=== PATIENT | female | born 1965 | race Two or more races ===

== ENCOUNTER 2023-01-24 00:56 | Inpatient (IN) | payer MEDICAID, OTHER ==
[~2023-01-24] VITALS: Ht 167.6 cm; Wt 93.8 kg
[2023-01-24] VITALS (9 sets, daily range): BP systolic 126–138; BP diastolic 76–88; PULSE 84–97; RESP 17–25; TEMP 97.5–97.9; O2SAT 90–97
[2023-01-24] MEDS ORDERED: IOHEXOL 350 MG/ML 100ML IJ ONE (02:24)
[2023-01-24 02:47] LABS: Basophils # (auto) 0.1 10 ^3/uL (0-0.2); Basophils % (auto) 0.7 % (0.0-2.0); Eosinophils # (auto) 0.1 10 ^3/uL (0-0.8); Hematocrit 42.7 % (36.0-46.0); Lymphocytes % (auto) 19.5 % (10.0-50.0); Mean Corpuscular Hemoglobin 29.9 pg (28.0-32.0); Mean Corpuscular Hgb Conc. 32.7 g/dL (32.0-36.0); Mean Corpuscular Volume 91.5 fL (80.0-100.0); Monocytes # (auto) 0.8 10 ^3/uL (0-1.3); Monocytes % (auto) 7.7 % (0.0-12.0); Neutrophils # (auto) 7.1 10 ^3/uL (1.6-8.6); Neutrophils % (auto) 71.1 % (37.0-80.0); Nucleated Red Blood Cells % 0.1 %; Red Blood Cells 4.66 10^6/uL (4.0-5.20); Red Cell Distribution Width 14.5 % (11.8-14.3)
[2023-01-24 02:48] LABS: Alanine Aminotransferase 14 U/L (7-40); Albumin 4.5 g/dL (3.2-4.8); Alkaline Phosphatase 66 U/L (46-116); Anion Gap 6 (5-15); Aspartate Aminotransferase 13 U/L (13-40); BUN/Creatinine Ratio 12.2 (10.0-20.0); Bilirubin, Total 0.8 mg/dL (0.2-1.0); Blood Urea Nitrogen 17 mg/dL (9-23); Calcium 9.6 mg/dL (8.7-10.4); Carbon Dioxide 23 mmol/L (20-30); Chloride 106 mmol/L (98-107); Glucose 127 mg/dL (74-106); Magnesium 1.5 mg/dL (1.6-2.6); Potassium 3.9 mmol/L (3.5-5.1); Sodium 135 mmol/L (136-145)
[2023-01-24 02:49] LABS: Total Protein 6.5 g/dL (5.7-8.2)
[2023-01-24 03:34] LABS: Erythrocyte Sedimentation Rate 8 mm/hr (0-20)
[2023-01-24 04:12] LABS: CRP High Sensitivity 2.01 mg/dL (<1.0)
[2023-01-24] MEDS ORDERED: CEFTRIAXONE SODIUM 2 GM in D5W 5% 100 ML IV ONE (04:30)
[2023-01-24] MEDS ORDERED: VANCOMYCIN 1GM/250ML 250 ML IV ONE (04:30)
[2023-01-24] MEDS ORDERED: HYDROcodone-ACET 10/325MG TAB PO ONE (06:45)
[2023-01-24] MEDS ORDERED: DOCUSATE SOD 100 MG CAP PO PRN (10:00)
[2023-01-24 10:58] LABS: INR 1.08 (0.9-1.15); Prothrombin Time 11.3 sec (9.3-11.8)
[2023-01-24] MEDS: MAGNESIUM SULFATE 1GM/100ML 100 ML IV SCH ×2 (12:00→13:28)
[2023-01-24] MEDS: SODIUM CHLORIDE 0.9% 1,000 ML IV SCH (12:01)
[2023-01-24] MEDS: APIXABAN 5 MG TAB PO SCH ×2 (12:01→21:42)
[2023-01-24] MEDS ORDERED: SIRO1TAB6 PO (13:42)
[2023-01-24] MEDS ORDERED: PRE5T PO (13:42)
[2023-01-24] MEDS ORDERED: APIX5TAB PO (13:42)
[2023-01-24] MEDS ORDERED: TACR1CAP4 PO (13:42)
[2023-01-24] MEDS ORDERED: ROSU1TAB14 PO (13:42)
[2023-01-24] MEDS ORDERED: LISI10TA34 PO (13:42)
[2023-01-24 13:46] LABS: Erythrocyte Sedimentation Rate 6 mm/hr (0-20)
[2023-01-24] MEDS: methylPREDNISolone SOD SUCC 40 MG/ML VL IV SCH ×2 (14:26→21:42)
[2023-01-24] MEDS: CLINDAMYCIN 300MG IV 50 ML IV SCH ×2 (14:27→21:43)
[2023-01-24] MEDS: ONDANSETRON HCL 4 MG/2 ML VIAL IV PRN (20:15)
[2023-01-24] MEDS: MORPHINE SULFATE INJ 2 MG/ml SYRG IV PRN (20:15)
[2023-01-25] VITALS (7 sets, daily range): BP systolic 99–138; BP diastolic 50–77; PULSE 83–98; RESP 16–19; TEMP 97.2–98.5; O2SAT 93–98
[2023-01-25] MEDS: ONDANSETRON HCL 4 MG/2 ML VIAL IV PRN ×3 (00:23→14:22)
[2023-01-25] MEDS: MORPHINE SULFATE INJ 2 MG/ml SYRG IV PRN ×3 (00:25→14:16)
[2023-01-25] MEDS: methylPREDNISolone SOD SUCC 40 MG/ML VL IV SCH (06:03)
[2023-01-25] MEDS: CLINDAMYCIN 300MG IV 50 ML IV SCH (06:04)
[2023-01-25] MEDS: SODIUM CHLORIDE 0.9% 1,000 ML IV SCH ×3 (06:10→23:04)
[2023-01-25 06:37] LABS: Alanine Aminotransferase 15 U/L (7-40); Alkaline Phosphatase 60 U/L (46-116); Anion Gap 6 (5-15); Aspartate Aminotransferase 11 U/L (13-40); BUN/Creatinine Ratio 11.1 (10.0-20.0); Bilirubin, Total 0.4 mg/dL (0.2-1.0); Blood Urea Nitrogen 22 mg/dL (9-23); Calcium 8.2 mg/dL (8.7-10.4); Carbon Dioxide 23 mmol/L (20-30); Chloride 106 mmol/L (98-107); Glucose 353 mg/dL (74-106); Potassium 4.8 mmol/L (3.5-5.1); Sodium 135 mmol/L (136-145); Total Protein 5.9 g/dL (5.7-8.2)
[2023-01-25 06:52] LABS: Basophils # (auto) 0 10 ^3/uL (0-0.2); Basophils % (auto) 0.1 % (0.0-2.0); Eosinophils # (auto) 0 10 ^3/uL (0-0.8); Hematocrit 40.4 % (36.0-46.0); Hemoglobin 13.5 g/dL (12.2-16.2); Lymphocytes # (auto) 0.6 10 ^3/uL (0.4-5.4); Lymphocytes % (auto) 5.9 % (10.0-50.0); Mean Corpuscular Hemoglobin 30.4 pg (28.0-32.0); Mean Corpuscular Hgb Conc. 33.3 g/dL (32.0-36.0); Mean Corpuscular Volume 91.2 fL (80.0-100.0); Monocytes # (auto) 0.1 10 ^3/uL (0-1.3); Monocytes % (auto) 0.5 % (0.0-12.0); Neutrophils # (auto) 9.4 10 ^3/uL (1.6-8.6); Neutrophils % (auto) 93.5 % (37.0-80.0); Red Blood Cells 4.43 10^6/uL (4.0-5.20); Red Cell Distribution Width 14.4 % (11.8-14.3)
[2023-01-25] MEDS: APIXABAN 5 MG TAB PO SCH ×2 (09:56→22:51)
[2023-01-25] MEDS ORDERED: carBAMazepine 200 MG TAB PO ONE (11:30)
[2023-01-25] MEDS ORDERED: amLODIPine BESYLATE 5 MG TAB PO ONE (11:45)
[2023-01-25] MEDS ORDERED: TACROLIMUS 1 MG CAP PO ONE (11:45)
[2023-01-25] MEDS ORDERED: ASCORBIC ACID 500 MG TAB PO ONE (11:45)
[2023-01-25] MEDS ORDERED: predniSONE 5 MG TAB PO ONE (11:45)
[2023-01-25] MEDS ORDERED: SIROLIMUS 1 MG PO ONE (13:00)
[2023-01-25] MEDS ORDERED: ACETYLCYSTEINE ORAL for CIN 20%(200MG/ML) 4ML PO ONE (14:00)
[2023-01-25 15:56] LABS: Urine Bacteria FEW /hpf (None Seen); Urine Blood Negative /uL (Negative); Urine Clarity Clear (Clear); Urine Color Colorless (Yellow); Urine Protein, UAD Negative (Negative); Urine Specific Gravity 1.026 (1.001-1.035); Urine Urobilinogen Normal (Negative); Urine WBC 1 /hpf (0 - 5); Urine pH 5.5 (5.0-8.0)
[2023-01-25 16:09] LABS: Protein, Urine 9.9 mg/dL (0.0-11.9)
[2023-01-25 16:12] LABS: Creatinine, Urine 76.84 mg/dL (30.0-125.0); Urine Protein/Creatinine Ratio 0.13
[2023-01-25] MEDS ORDERED: TACROLIMUS 1 MG CAP PO SCH (22:00)
[2023-01-25] MEDS ORDERED: CALCIUM CARBONATE VITAMIN D3 PO SCH (22:00)
[2023-01-25] MEDS ORDERED: ATORVASTATIN 20 MG TAB PO SCH (22:00)
[2023-01-25] MEDS: ASCORBIC ACID 500 MG TAB PO SCH (22:51)
[2023-01-25] MEDS: carBAMazepine 200 MG TAB PO SCH (22:51)
[2023-01-25] MEDS: ACETYLCYSTEINE ORAL for CIN 20%(200MG/ML) 4ML PO SCH (22:52)
[2023-01-25] MEDS: TACROLIMUS 1 MG CAP PO SCH (22:52)
[2023-01-25] MEDS ORDERED: MELATONIN 5 MG TAB PO ONE (23:30)
[2023-01-26] VITALS (7 sets, daily range): BP systolic 114–148; BP diastolic 64–84; PULSE 88–97; RESP 15–22; TEMP 97.3–98.1; O2SAT 91–99
[2023-01-26] MEDS ORDERED: ALPRAZolam 0.25 MG TAB PO ONE (00:30)
[2023-01-26 08:50] LABS: Basophils # (auto) 0 10 ^3/uL (0-0.2); Eosinophils # (auto) 0 10 ^3/uL (0-0.8); Eosinophils % (auto) 0.1 % (0.0-7.0); Hematocrit 39.3 % (36.0-46.0); Hemoglobin 12.9 g/dL (12.2-16.2); Lymphocytes # (auto) 1.5 10 ^3/uL (0.4-5.4); Lymphocytes % (auto) 7.8 % (10.0-50.0); Mean Corpuscular Hemoglobin 30.1 pg (28.0-32.0); Mean Corpuscular Hgb Conc. 32.8 g/dL (32.0-36.0); Mean Corpuscular Volume 91.7 fL (80.0-100.0); Monocytes # (auto) 0.9 10 ^3/uL (0-1.3); Monocytes % (auto) 4.8 % (0.0-12.0); Neutrophils # (auto) 16.6 10 ^3/uL (1.6-8.6); Neutrophils % (auto) 87.3 % (37.0-80.0); Red Blood Cells 4.29 10^6/uL (4.0-5.20); Red Cell Distribution Width 14.7 % (11.8-14.3)
[2023-01-26 09:05] LABS: Chloride 112 mmol/L (98-107); Potassium 4.6 mmol/L (3.5-5.1); Sodium 139 mmol/L (136-145)
[2023-01-26 09:06] LABS: Anion Gap 4 (5-15); Calcium 8.5 mg/dL (8.7-10.4); Carbon Dioxide 23 mmol/L (20-30)
[2023-01-26 09:08] LABS: Triglycerides 65 mg/dL (< 150)
[2023-01-26 09:09] LABS: CRP High Sensitivity 0.67 mg/dL (<1.0); LDL Cholesterol 51 mg/dL (< 100)
[2023-01-26 09:10] LABS: Cholesterol 129 mg/dL (< 200); HDL Cholesterol 63 mg/dL (40-59)
[2023-01-26 09:11] LABS: BUN/Creatinine Ratio 16.9 (10.0-20.0); Blood Urea Nitrogen 24 mg/dL (9-23); Glucose 185 mg/dL (74-106)
[2023-01-26 09:35] LABS: Erythrocyte Sedimentation Rate 4 mm/hr (0-20)
[2023-01-26] MEDS ORDERED: SIROLIMUS 1 MG PO SCH (10:00)
[2023-01-26] MEDS ORDERED: predniSONE 5 MG TAB PO SCH (10:00)
[2023-01-26] MEDS ORDERED: amLODIPine BESYLATE 5 MG TAB PO SCH (10:00)
[2023-01-26] MEDS ORDERED: VITAMIN E 400 MG PO SCH (10:00)
[2023-01-26] MEDS: SODIUM CHLORIDE 0.9% 1,000 ML IV SCH ×3 (10:23→19:48)
[2023-01-26] MEDS: APIXABAN 5 MG TAB PO SCH ×2 (10:24→22:46)
[2023-01-26] MEDS: ACETYLCYSTEINE ORAL for CIN 20%(200MG/ML) 4ML PO SCH ×2 (10:25→22:49)
[2023-01-26] MEDS: carBAMazepine 200 MG TAB PO SCH ×2 (10:26→22:00)
[2023-01-26] MEDS: ASCORBIC ACID 500 MG TAB PO SCH ×2 (10:26→22:45)
[2023-01-26] MEDS: TACROLIMUS 1 MG CAP PO SCH ×2 (10:26→22:45)
[2023-01-27 02:04] LABS: Urine Bacteria NONE SEEN /hpf (None Seen); Urine Blood Negative /uL (Negative); Urine Clarity Clear (Clear); Urine Color Colorless (Yellow); Urine Mucus FEW (None Seen); Urine Protein, UAD Negative (Negative); Urine Specific Gravity 1.008 (1.001-1.035); Urine Urobilinogen Normal (Negative); Urine WBC 72 /hpf (0 - 5)
[2023-01-27 05:00] VITALS: BP 127/80; PULSE 85; RESP 20; TEMP 98.1; O2SAT 95
[2023-01-27] MEDS: SODIUM CHLORIDE 0.9% 1,000 ML IV SCH (05:56)
[2023-01-27 08:00] VITALS: BP 122/75; PULSE 85; RESP 20; TEMP 97.6; O2SAT 98
[2023-01-27 09:00] VITALS: BP 140/88; PULSE 84; RESP 18; TEMP 97.5; O2SAT 91
[2023-01-27] MEDS ORDERED: cefTRIAXone 1GM/50ML D5W 50 ML IV SCH (09:00)
[2023-01-27] MEDS ORDERED: LISINOPRIL 10 MG TAB PO SCH (10:00)
[2023-01-27] MEDS ORDERED: GADOTERATE MEG 10 MMOL/20ml INJ (0.5MMOL/ml) IV ONE ×2 (11:01→11:17)
== END 2023-01-27 12:45 | disposition left against medical advice (07) | DRG 48 ==
LOC: ER 00:59 → OVERFLOW 09:56 → WEST WING 10:51 → CENTRAL 13:47
PROVIDERS: ADMIT Internal Medicine Geriatric Medicine; ATTEND Student in an Organized Health Care Education/Training Program
DX: G50.8 Other disorders of trigeminal nerve (principal); N17.0 Acute kidney failure with tubular necrosis; Z94.1 Heart transplant status; B02.29 Other postherpetic nervous system involvement; I82.722 Chronic embolism and thrombosis of deep veins of left upper extremity; G50.0 Trigeminal neuralgia; I11.0 Hypertensive heart disease with heart failure; I50.9 Heart failure, unspecified; E83.42 Hypomagnesemia; Z53.29 Procedure and treatment not carried out because of patient's decision for other reasons; E11.9 Type 2 diabetes mellitus without complications; Z68.29 Body mass index [BMI] 29.0-29.9, adult
CPT/HCPCS: 36415; 70450; 70487; 76775; 80048; 80053; 80061; 80197; 81001; 82570; 83036; 83605; 83735; 83880; 84100; 84156; 84300; 84443; 84484; 85025; 85610; 85652; 86141; 87040; 87086; 93005; 93306; 93971; G0378; J0696; J2405; J3490; J7060; J7507